=== PATIENT | female | born 2000 | race African-American/Black ===

== ENCOUNTER 2025-03-28 02:31 | Emergency (ER) | payer OTHER ==
[~2025-03-28] VITALS: Ht 160 cm; Wt 74.0 kg
[2025-03-28 02:56] VITALS: O2SAT 100
[2025-03-28] MEDS: IBUPROFEN 600MG TABLET PO ONE (03:32)
[2025-03-28] MEDS ORDERED: IBUP-1455 MT (03:38)
[2025-03-28 04:03] VITALS: BP 115/85; PULSE 63; RESP 20; TEMP 36.8; O2SAT 99
== END 2025-03-28 04:38 | disposition home or self-care (01) ==
LOC: ER 02:31
DX: S90.32XA Contusion of left foot, initial encounter (principal); W22.8XXA Striking against or struck by other objects, initial encounter; Y93.89 Activity, other specified; Y92.89 Other specified places as the place of occurrence of the external cause; Y99.8 Other external cause status
CPT/HCPCS: 73630; 99283; Z7610 ×2